=== PATIENT | female | born 1985 | race Caucasian/White ===

== ENCOUNTER 2017-08-04 11:23 | Outpatient (CLI) | payer OTHER ==
[~2017-08-04 11:23] MED LIST: MOTRIN800 MG PO; Motrin PO; PERCOCET 5/31 TABLET PO; PREFERA-OB P1 TABLET PO; Percocet 5/325,Endoc PO; Senokot S,Pericolace PO
[2017-08-04 11:43] VITALS: BP 130/86
[2017-08-04] MEDS ORDERED: PRENATAL VITAM1 EA11 PO (22:53)
[2017-08-05] MEDS ORDERED: MOTRIN800 MG PO (00:39)
== END 2017-08-04 13:47 | disposition home or self-care (01) ==
LOC: LDRP-OP 11:23 → 2WEST 11:24
PROVIDERS: Obstetrics & Gynecology
DX: O47.1 False labor at or after 37 completed weeks of gestation (principal); Z3A.39 39 weeks gestation of pregnancy
CPT/HCPCS: 59025; 82948; G0378

== ENCOUNTER 2017-08-04 22:40 | Inpatient (IN) | payer OTHER ==
[2017-08-04 22:47] VITALS: BP 141/95
[2017-08-04] MEDS ORDERED: PRENATAL VITAM1 EA11 PO (22:53)
[2017-08-04 23:21] LABS: BASOPHIL (%) 0.3 % (0-1); EOSINOPHIL (%) 1.3 % (0-5); EOSINOPHIL COUNT 0.1 K/uL (0-0.3); HEMATOCRIT 33.8 % (36.0-46.0); HEMOGLOBIN 11.8 G/DL (11.9-15.5); LYMPHOCYTE (%) 23.3 % (15-42); LYMPHOCYTE COUNT 2.4 K/uL (1.0-2.8); MCH 30.4 PG (29.0-34.0); MCHC 34.9 G/DL (30.0-36.0); MCV 87.1 FL (83-99); MONOCYTE (%) 5.4 % (3-12); MONOCYTE COUNT 0.6 K/uL (0-0.8); NEUTROPHIL (%) 68.7 % (45-76); PLATELET COUNT 203 K/uL (156-360); RBC DIS.WIDTH-CV 13.3 % (11.8-14.6); RBC DIS.WIDTH-SD 41.4 % (39-53); RED BLOOD COUNT 3.88 M/uL (3.80-5.20); WHITE BLOOD COUNT 10.1 K/uL (4.1-10.2)
[2017-08-04 23:33] LABS: ALBUMIN 3.5 g/dL (3.2-4.8); CHLORIDE 108 mEq/L (99-109); SODIUM 137 mEq/L (136-147)
[2017-08-04 23:36] LABS: GLUCOSE 91 mg/dL (70-99); TOTAL PROTEIN 6.1 g/dL (6.4-8.3)
[2017-08-04 23:37] LABS: TOTAL BILIRUBIN 0.5 mg/dL (0.0-1.0)
[2017-08-04 23:39] LABS: ALKALINE PHOSPHATASE 168 IU/L (3-129); CREATININE 0.7 mg/dL (0.6-1.3); GFR ESTIMATE (CALCULATED) > 59 mL/min/
[2017-08-04 23:40] LABS: UREA NITROGEN (BUN) 12 mg/dL (9-23)
[2017-08-04 23:41] LABS: AST (GOT) 19 IU/L (2-34)
[2017-08-04 23:42] LABS: ALT (GPT) 15 IU/L (3-49)
[2017-08-04 23:53] VITALS: BP 138/92
[2017-08-05] VITALS (9 sets, daily range): BP systolic 117–137; BP diastolic 60–88
[2017-08-05] MEDS ORDERED: MOTRIN800 MG PO (00:39)
== END 2017-08-06 12:20 | disposition home or self-care (01) | DRG 775 ==
LOC: LDRP-OP 22:40 → 2WEST 22:41
PROVIDERS: Nurse Practitioner
PROC: 10907ZC Drainage of Amniotic Fluid, Therapeutic from Products of Conception, Via Natural or Artificial Opening (ICD-10-PCS; 2017-08-04)
PROC: 10E0XZZ Delivery of Products of Conception, External Approach (ICD-10-PCS; principal; 2017-08-05)
DX: O24.420 Gestational diabetes mellitus in childbirth, diet controlled (principal); Z3A.39 39 weeks gestation of pregnancy; Z37.0 Single live birth
CPT/HCPCS: 80053; 85025; G0378